=== PATIENT | male | born 1980 | race African-American/Black ===

== ENCOUNTER 2022-01-04 15:07 | Inpatient (IN) | payer SELFPAY ==
[~2022-01-04] VITALS: Ht 182.9 cm; Wt 110.2 kg
[2022-01-04 15:33] LABS: BASOPHILS # (AUTO) 0.1 (0.0-0.1); BASOPHILS % 0.7 % (0.0-1.0); EOSINOPHILS # (AUTO) 0.2 (0.0-0.4); EOSINOPHILS % 1.4 % (0.0-6.0); HEMATOCRIT 43.6 % (38.2-49.6); HEMOGLOBIN 14.5 g/dL (14.0-18.0); LYMPHOCYTES # (AUTO) 3.5 (1.0-3.2); LYMPHOCYTES % 26.3 % (18.0-39.1); MEAN CORPUSCULAR HGB CONC 33.3 g/dL (31-35); MEAN CORPUSCULAR VOLUME 78.3 fL (81-99); MONOCYTES # (AUTO) 1.5 (0.2-0.8); MONOCYTES % 11.5 % (4.4-11.3); NEUTROPHILS % 59.8 % (38.7-80.0); PLATELET COUNT 264 x10e3/uL (140-360); RED BLOOD COUNT 5.57 x10e6/uL (4.3-5.7); RED CELL DISTRIBUTION WIDTH 15.1 % (11.7-14.4)
[2022-01-04] MEDS ORDERED: LABETALOL HCL 5 MG/ML 20ML VIAL IV STA (15:35)
[2022-01-04 15:37] LABS: INR 0.92; PROTHROMBIN TIME 13.2 seconds (11.9-14.5)
[2022-01-04 15:38] LABS: PARTIAL THROMBOPLASTIN TIME 32.8 seconds (23.8-35.5)
[2022-01-04] MEDS ORDERED: NITROGLYCERIN 2% OINT 1 GM PKT TOP ONE (15:45)
[2022-01-04 15:48] LABS: ALBUMIN 4.2 g/dL (3.5-5.0); ALBUMIN/GLOBULIN RATIO 1.1 (0.8-2.0); ANION GAP 17.4 mmol/L (8-16); CALCIUM 9.8 mg/dL (8.4-10.2); CREATININE, SERUM 1.19 mg/dL (0.72-1.25); MAGNESIUM 2.4 MG/DL (1.3-2.1); POTASSIUM 3.4 mmol/L (3.5-5.1)
[2022-01-04 15:54] LABS: CREATINE KINASE MB 2.1 ng/mL (0-5.0)
[2022-01-04 15:56] LABS: CLARITY,URINE CLEAR (CLEAR); COLOR,URINE YELLOW (YELLOW); KETONES,URINE NEGATIVE (NEGATIVE); LEUKOCYTE ESTERASE ,URINE NEGATIVE (NEGATIVE); NITRITE,URINE NEGATIVE (NEGATIVE); PROTEIN,URINE DIPSTICK NEGATIVE (NEGATIVE); URINE UROBILINOGEN 0.2 mg/dL (0.2 - 1)
[2022-01-04 15:57] LABS: AMPHETAMINES SCREEN,URINE NEGATIVE (NEGATIVE); BENZODIAZEPINES SCREEN,URINE NEGATIVE (NEGATIVE); PHENCYCLIDINE SCREEN,URINE NEGATIVE (NEGATIVE)
[2022-01-04 16:08] LABS: WBC,URINE (MAN) 0-5 /HPF (0-5)
[2022-01-04 16:09] LABS: BACTERIA,URINE FEW /HPF; EPITHELIAL CELLS,URINE FEW /LPF
[2022-01-04] MEDS ORDERED: IOPAMIDOL 370 MG/ML 100 ML INFUS..BTL INJ ONE (16:21)
[2022-01-04] MEDS ORDERED: Vancomycin IV 1 GM in SODIUM CHLORIDE 0.9% 250ML 250 ML IV ONE (16:30)
[2022-01-04] MEDS ORDERED: CLONIDINE HCL 0.1 MG TAB PO ONE (16:30)
[2022-01-04] MEDS ORDERED: ENOXAPARIN SOD INJ 60 MG/0.6 ML SYR SC ONE (16:45)
[2022-01-04] MEDS ORDERED: ASPIRIN 81 MG CHEW TAB PO STA (17:13)
[2022-01-04] MEDS ORDERED: HYDRALAZINE HCL 20 MG/ML VIAL IV PRN (17:15)
[2022-01-04] MEDS ORDERED: ONDANSETRON HCL INJ 2MG/ML 2ML 2 MG/ML VIAL IV PRN (17:15)
[2022-01-04] MEDS ORDERED: ACETAMINOPHEN 325 MG TAB PO PRN (19:00)
[2022-01-04] MEDS ORDERED: AMLODIPINE BESYLATE 5 MG TAB PO ONE (19:30)
[2022-01-04] MEDS: OLMESARTAN 20 MG TAB PO SCH (20:12)
[2022-01-04 20:30] VITALS: BP 141/94
[2022-01-04 21:00] VITALS: BP 141/94
[2022-01-04] MEDS ORDERED: LISINOPRIL10 MG PO (21:35)
[2022-01-04] MEDS ORDERED: HYDROCHLOROTHIA25 MG (21:35)
[2022-01-04] MEDS ORDERED: ASPIRIN81 MG PO (21:35)
[2022-01-04] MEDS ORDERED: AMLODIPINE BESY10 MG PO (21:35)
[2022-01-05] VITALS (8 sets, daily range): BP systolic 130–165; BP diastolic 71–103
[2022-01-05 05:55] LABS: BASOPHILS # (AUTO) 0.1 (0.0-0.1); BASOPHILS % 0.6 % (0.0-1.0); EOSINOPHILS # (AUTO) 0.2 (0.0-0.4); EOSINOPHILS % 1.5 % (0.0-6.0); LYMPHOCYTES # (AUTO) 2.8 (1.0-3.2); LYMPHOCYTES % 19.6 % (18.0-39.1); MEAN CORPUSCULAR HEMOGLOBIN 26.3 pg (28-32); MEAN CORPUSCULAR HGB CONC 33.3 g/dL (31-35); MEAN CORPUSCULAR VOLUME 78.8 fL (81-99); MONOCYTES # (AUTO) 1.7 (0.2-0.8); MONOCYTES % 12.1 % (4.4-11.3); NEUTROPHILS # (AUTO) 9.4 (2.1-6.9); NEUTROPHILS % 65.8 % (38.7-80.0); PLATELET COUNT 257 x10e3/uL (140-360); RED BLOOD COUNT 5.33 x10e6/uL (4.3-5.7); RED CELL DISTRIBUTION WIDTH 14.7 % (11.7-14.4)
[2022-01-05 06:22] LABS: CREATINE KINASE MB 1.2 ng/mL (0-5.0)
[2022-01-05 06:25] LABS: ALANINE AMINOTRANSFERASE 16 IU/L (0-55); ALBUMIN 3.6 g/dL (3.5-5.0); ALBUMIN/GLOBULIN RATIO 0.9 (0.8-2.0); ALKALINE PHOSPHATASE 52 IU/L (40-150); ANION GAP 14.5 mmol/L (8-16); BLOOD UREA NITROGEN 13 mg/dL (7-26); BUN/CREATININE RATIO 11 (6-25); CALCIUM 8.9 mg/dL (8.4-10.2); CARBON DIOXIDE 24 mmol/L (22-29); CHLORIDE 105 mmol/L (98-107); CHOL/HDL RATIO 8.5 (3.9-4.7); CHOLESTEROL 153 MD/DL (0-199); CREATININE, SERUM 1.22 mg/dL (0.72-1.25); GLUCOSE 93 mg/dL (74-118); HDL CHOLESTEROL 18 MG/DL (40-60); POTASSIUM 3.5 mmol/L (3.5-5.1); SODIUM 140 mmol/L (136-145); TRIGLYCERIDES 453 MG/DL (0-149)
[2022-01-05 07:05] LABS: THYROID STIMULATING HORMONE 1.421 uIU/mL (0.350-4.940)
[2022-01-05] MEDS: AMLODIPINE BESYLATE 5 MG TAB PO SCH (09:45)
[2022-01-05] MEDS: ASPIRIN 81 MG ENTERIC COATED PO SCH (09:46)
[2022-01-05] MEDS: OLMESARTAN 20 MG TAB PO SCH (09:46)
[2022-01-05 16:31] LABS: CREATINE KINASE MB 0.9 ng/mL (0-5.0)
[2022-01-05] MEDS ORDERED: ENOXAPARIN SOD INJ 40 MG/0.4 ML SYR SC SCH (17:00)
[2022-01-06] VITALS: BP 171/98
[2022-01-06 04:00] VITALS: BP 139/90
[2022-01-06 05:50] LABS: BASOPHILS # (AUTO) 0.1 (0.0-0.1); BASOPHILS % 0.6 % (0.0-1.0); EOSINOPHILS # (AUTO) 0.2 (0.0-0.4); EOSINOPHILS % 1.3 % (0.0-6.0); HEMATOCRIT 42.3 % (38.2-49.6); HEMOGLOBIN 14.3 g/dL (14.0-18.0); LYMPHOCYTES # (AUTO) 2.5 (1.0-3.2); LYMPHOCYTES % 18.6 % (18.0-39.1); MEAN CORPUSCULAR HEMOGLOBIN 26.1 pg (28-32); MEAN CORPUSCULAR HGB CONC 33.8 g/dL (31-35); MEAN CORPUSCULAR VOLUME 77.2 fL (81-99); MONOCYTES % 15.1 % (4.4-11.3); NEUTROPHILS # (AUTO) 8.6 (2.1-6.9); NEUTROPHILS % 63.9 % (38.7-80.0); PLATELET COUNT 235 x10e3/uL (140-360); RED BLOOD COUNT 5.48 x10e6/uL (4.3-5.7); RED CELL DISTRIBUTION WIDTH 15.3 % (11.7-14.4)
[2022-01-06 06:08] LABS: ALBUMIN 3.6 g/dL (3.5-5.0); ALBUMIN/GLOBULIN RATIO 0.9 (0.8-2.0); ANION GAP 15.5 mmol/L (8-16); CALCIUM 9.2 mg/dL (8.4-10.2); CREATININE, SERUM 0.98 mg/dL (0.72-1.25); POTASSIUM 3.5 mmol/L (3.5-5.1)
[2022-01-06 06:48] LABS: CREATINE KINASE MB 1.1 ng/mL (0-5.0)
[2022-01-06 08:19] VITALS: BP 159/99
[2022-01-06 08:53] VITALS: BP 159/99
[2022-01-06] MEDS: AMLODIPINE BESYLATE 5 MG TAB PO SCH (09:10)
[2022-01-06] MEDS: ASPIRIN 81 MG ENTERIC COATED PO SCH (09:10)
[2022-01-06] MEDS: OLMESARTAN 20 MG TAB PO SCH (09:10)
[2022-01-06 09:12] VITALS: BP 159/99
[2022-01-06] MEDS ORDERED: KETOROLAC TROME10 MG PO (10:18)
[2022-01-06] MEDS ORDERED: BACTRIM DS TAB1 EACH PO (10:18)
[2022-01-06] MEDS ORDERED: HYDROCHLOROTHIA25 MG PO (10:18)
[2022-01-06] MEDS ORDERED: AMLODIPINE BESY10 MG PO (10:18)
== END 2022-01-06 11:17 | disposition home or self-care (01) | DRG 305 ==
LOC: ER 15:19 → ERHOLD 17:20 → MED/SURG2 20:40
PROVIDERS: ADMIT Internal Medicine; ATTEND Internal Medicine
PROC: 0HBMXZZ Excision of Right Foot Skin, External Approach (ICD-10-PCS; principal; 2022-01-05)
DX: I16.0 Hypertensive urgency (principal); L03.115 Cellulitis of right lower limb; R60.0 Localized edema; L57.0 Actinic keratosis; E66.09 Other obesity due to excess calories; Z68.32 Body mass index [BMI] 32.0-32.9, adult; I11.0 Hypertensive heart disease with heart failure; I50.9 Heart failure, unspecified; Z20.822 Contact with and (suspected) exposure to COVID-19; L84 Corns and callosities
CPT/HCPCS: 0223U; 36415; 71045; 71260; 80053; 80061; 80307; 81001; 82550; 82553; 83036; 83735; 83880; 84443; 84484; 84550; 85025; 85379; 85610; 85730; 87040; 93005; 93306; 93971; 94799; 99284; J1650; J2543; J3370; J7050; Q9967